=== PATIENT | male | born 1965 | race Two or more races ===

== ENCOUNTER 2016-07-15 04:34 | Inpatient (IN) | payer OTHER ==
[~2016-07-15] VITALS: Ht 170.2 cm; Wt 135.2 kg
[~2016-07-15 04:34] MED LIST: AMLO1CAP PO; METO100T7 PO
--- NOTE | 2016-07-15 04:46 | NUR ---
RECEIVED PT FOR SURGERY . PLZ SEE PRE OP ASSESSMENT . MRSA AND PRBC DRAWN PER ORDERED .
[2016-07-15] MEDS ORDERED: IV LR 1000 ML 1,000 ML ONE ×2 (05:03→08:56)
[2016-07-15] MEDS ORDERED: CEFAZOLIN SODIUM/DEXTROSE,ISO 50 ML IV ONE (05:03)
[2016-07-15] MEDS ORDERED: IV SET PRIMARY PUMP SET 1 EA INFUS.SET MC ONE ×2 (05:03→10:17)
[2016-07-15] MEDS ORDERED: SECONDARY IV SET 1 EA INFUS.SET MC ONE ×3 (05:03→14:42)
[2016-07-15] MEDS ORDERED: FENTANYL PF 100MCG/2ML AMPUL IV ONE (06:12)
--- NOTE | 2016-07-15 06:20 | NUR ---
BELONGING WITH FAMILY . UNABLE TO VERIFY MED LIST WITH PT . WILL FOLLOW UP .
[2016-07-15] MEDS ORDERED: KETOROLAC TROMETHAMINE INJ 30 MG/ML VIAL ONE (06:49)
[2016-07-15] MEDS ORDERED: BUPIVACAINE MPF 0.5% W/EPI INJ 30 ML VIAL ONE (06:50)
[2016-07-15] MEDS ORDERED: BACITRACIN 50000 UNITS/VIAL ONE (06:50)
[2016-07-15] MEDS ORDERED: TRANEXAMIC ACID 3,000 MG in SODIUM CHLORIDE IRRIG SOLUTION 70 ML IR ONE (07:30)
[2016-07-15] MEDS ORDERED: FENTANYL PF 100MCG/2ML AMPUL ONE (09:03)
--- NOTE | 2016-07-15 09:50 | NUR ---
ADMITTED FROM DAY SURGERY AFTER RT TKA. PT AWAKE, ALERT AND ORIENTED X4. O2@2L VIA NC. DRESSING DRY AND INTACT ON RT LEG. VS STABLE. WILL CHECK VS Q15MIN. SKIN INTACT. GIVEN UNIT ORIENTATION TO THE PT AND FAMILY. SIDE RAILS UP. CALL LIGHT WITHIN REACH. MONITOR CLOSELY.
[2016-07-15 10:00] VITALS: BP 119/70
[2016-07-15] MEDS ORDERED: ZOLPIDEM TARTRATE 5 MG TABLET PO PRN (10:00)
[2016-07-15] MEDS ORDERED: ONDANSETRON HCL/PF 4 MG/2 ML VIAL IVP PRN (10:00)
[2016-07-15] MEDS ORDERED: DOCUSATE SODIUM 250 MG CAPSULE PO PRN (10:00)
[2016-07-15] MEDS ORDERED: SENNOSIDES 8.6 MG TABLET PO PRN (10:00)
[2016-07-15] MEDS ORDERED: HYDROCODONE/APAP 5/325MG 1 EACH TABLET PO PRN (10:00)
[2016-07-15] MEDS ORDERED: ACETAMINOPHEN 325 MG TABLET PO PRN (10:00)
[2016-07-15] MEDS ORDERED: BISACODYL SUPP (10 MG) 10 MG/SUPP.RECT SUPP.RECT RC PRN (10:00)
[2016-07-15] MEDS: HYDROMORPHONE 1 MG/1 ML DISP.SYRIN SQ PRN (11:58)
[2016-07-15] MEDS ORDERED: HYDROCODONE/APAP 10/325MG 1 EA TABLET PO PRN (12:00)
[2016-07-15] MEDS: IV D5/0.45 NACL 1,000 ML IV PRN (12:13)
[2016-07-15] MEDS ORDERED: SET PCA INFUSE SET 1 EA INFUS.SET MC ONE (12:30)
[2016-07-15] MEDS: HYDROMORPHONE MDV 30 MG in IV NS 0.9% 15 ML, PCA TOTAL VOLUME 1 BAG IV PRN ×3 (12:50)
--- NOTE | 2016-07-15 13:00 | NUR ---
COMPLAINTS OF PAIN ON RT LEG. SPOKE WITH DR. OBRIEN. HE WILL ORDER PHYSICIST NUCLEAR.
[2016-07-15] MEDS ORDERED: ANESTHESIA TRAY IN PYXIS 1 EA TRAY MC ONE (13:55)
[2016-07-15] MEDS: ANCEF 1 GM/50 ML D5W IV SCH ×4 (14:46→23:37)
[2016-07-15] MEDS: BENAZEPRIL HCL 20 MG TABLET PO SCH (15:30)
[2016-07-15] MEDS: METOPROLOL SUCCINATE 50 MG TAB.SR.24H PO SCH (15:30)
[2016-07-15] MEDS ORDERED: Medication Not On Formulary EA (Amlodipine Besylate/Benazepril (Lotrel 10-20 Mg Capsule) PO SCH (15:30)
[2016-07-15] MEDS: AMLODIPINE BESYLATE 10 MG TABLET PO SCH (15:30)
[2016-07-15 16:00] VITALS: BP_SYST 121; BP_SYST 127; BP_DIAS 82
--- NOTE | 2016-07-15 18:31 | NUR ---
CLOSING SHIFT PT. AWAKE, ALERT AND ORIENTED X4. TOLERATED ON RT LEG PAIN. CASHIER PUMP ON. VS STABLE. NO BREATHING DEPRESSION. CONTINUE PULSE OX MONITOR. SELF VOIDED WELL. ORAL INTAKE GOOD. TKO IVF. ENCOURAGED AN INCENTIVE SPIROMETER. FAMILY AT THE BEDSIDE. SIDE RAILS UP. CALL LIGHT WITHIN REACH. MONITOR CLOSELY.
--- NOTE | 2016-07-15 19:53 | NUR ---
MS/RN NOTES PATIENT IN BED. AWAKE, ALERT AND ABLE TO VERBALIZE NEEDS AT ALL TIMED ON NUCLEAR CONTROL OPERATOR PUMP FOR PAIN. WILL CONTINUE TO PROVIDE CARE. FAMILY AT BEDSIDE AND REQUESTED FOR VISIT BY SON SANTOSH KHAN INFORM CHARGE NURSE.WILL CONTINUE MONITORING AND PROVIDE CARE.
[2016-07-15 20:00] VITALS: BP 108/70
[2016-07-15 20:28] VITALS: BP 108/70
[2016-07-15] MEDS: PANTOPRAZOLE 40 MG TABLET.DR PO SCH (22:30)
[2016-07-15] MEDS ORDERED: MAG HYDROX/AL HYDROX/SIMETH 30 ML UDC PO PRN (22:30)
[2016-07-15] MEDS ORDERED: CLONIDINE HCL 0.1 MG TABLET PO PRN (22:30)
[2016-07-15] MEDS ORDERED: MAGNESIUM HYDROXIDE 30 ML UDC PO PRN (22:30)
[2016-07-15] MEDS ORDERED: diphenhydrAMINE HCL 25 MG CAPSULE PO PRN (22:30)
[2016-07-15] MEDS ORDERED: oxyCODONE IR immediate release 5 MG CAPSULE PO PRN (23:00)
--- NOTE | 2016-07-16 00:05 | NUR ---
MS/RN NOTES MEDICATION PER CHARGE NURSE TO BE GIVEN IN AM
[2016-07-16] MEDS: IV D5/0.45 NACL 1,000 ML IV PRN ×2 (05:12→15:02)
--- NOTE | 2016-07-16 06:41 | NUR ---
MS/RN CLOSING NOTES PATIENT IN BED HOB ELEVATED ASLEEP W/ NO S/S OF SOB OR DISTRESS. ON OXYGEN 4 L VIA NC WITH 90% OXGYNATION. CALL LIGHTS WITHIN REACH.WILL ENDORSE TO AM RN KIMBERLEY
--- NOTE | 2016-07-16 07:40 | NUR ---
received pt. in am,alert and oriented x4.dvt to lt. leg.no complaints offered.hooked up to pox.level good o2 on.
[2016-07-16 08:00] VITALS: BP 111/66
[2016-07-16] MEDS: BENAZEPRIL HCL 20 MG TABLET PO SCH (09:00)
[2016-07-16] MEDS: AMLODIPINE BESYLATE 10 MG TABLET PO SCH (09:00)
[2016-07-16] MEDS: METOPROLOL SUCCINATE 50 MG TAB.SR.24H PO SCH (09:00)
[2016-07-16] MEDS: HYDROMORPHONE 1 MG/1 ML DISP.SYRIN SQ PRN ×3 (09:31→22:38)
[2016-07-16] MEDS: DOCUSATE SODIUM 100 MG CAPSULE PO SCH ×2 (09:49→17:26)
[2016-07-16] MEDS: RIVAROXABAN 10 MG TABLET PO SCH (09:50)
--- NOTE | 2016-07-16 10:30 | NUR ---
ptx in pt. walked short distance,meron well.
--- NOTE | 2016-07-16 11:00 | NUR ---
dilaudid inj. after activity.
--- NOTE | 2016-07-16 14:30 | NUR ---
phy. tx. in walked pt.some bleeding afterwards.on rt. knee area.nayeli mendez notified.additionally ok,indra cpm machine.drainage did leak through zackery.
[2016-07-16 16:00] VITALS: BP 109/66
[2016-07-16] MEDS ORDERED: SET PCA INFUSE SET 1 EA INFUS.SET MC ONE (16:58)
--- NOTE | 2016-07-16 17:00 | NUR ---
tolerated cpm for several hrs,and had another injection after 2nd walk with phy. kelly
[2016-07-16] MEDS: HYDROMORPHONE MDV 30 MG in IV NS 0.9% 15 ML, PCA TOTAL VOLUME 1 BAG IV PRN ×3 (17:02)
--- NOTE | 2016-07-16 19:15 | NUR ---
RN NOTE RECEIVED REPORT. PT AAOX4, S/P R KNEE REVISION SURGERY. NO C/O OF PAIN OR DISCOMFORT AT THIS TIME, BREATHING NON-LABORED AND EVEN, SATTING WELL. RIGHT LEG DRESSING INTACT, SMALL AMOUNT OF BLEEDING NOTED - MD AWARE PER AM RN. WILL MONITOR CLOSELY. ON ACADEMIC DEAN PUMP, SETTINGS ACCURATE. IV INTACT AND PATENT, WILL CONT TO MONITOR.
[2016-07-16 20:00] VITALS: BP 115/60
--- NOTE | 2016-07-16 20:51 | NUR ---
RN NOTE MD AT BEDSIDE. PER MD OBRIEN, "WE WILL MOST LIKELY STOP MEDIA REPORTER AT NOON TOMORROW'.
[2016-07-16] MEDS ORDERED: HYDROMORPHONE MDV 30 MG in IV NS 0.9% 15 ML, PCA TOTAL VOLUME 1 BAG IV PRN ×3 (21:00)
[2016-07-16] MEDS: PANTOPRAZOLE 40 MG TABLET.DR PO SCH (21:03)
--- NOTE | 2016-07-16 23:00 | NUR ---
RN NOTE PT TOLERATING PO VERY WELL, WILL PUT IV SALINE LOCK PER MD CECILIA VELASQUEZ
--- NOTE | 2016-07-17 05:35 | NUR ---
RN NOTE PT RESTING IN BED WITH EYES CLOSED. NO S/S OF ANY DISTRESS. WILL CONT TO MONITOR.
[2016-07-17] MEDS ORDERED: MIDAZOLAM HCL 2 MG/2ML VIAL IV ONE (06:12)
--- NOTE | 2016-07-17 06:44 | NUR ---
RN NOTE NO SIGNIFICANT CHANGES THIS SHIFT. PT RESTING WITH EYES CLOSED. NO S/S OF RESPIRATORY DISTRESS, BREATHING EVEN AND NON-LABORED ON 2L NC. NO S/S OF PAIN OR DISCOMFORT. PAIN MANAGED WITH ARRANGER ASSEMBLER PUMP. IV INTACT AND PATENT S/L. USED INCENTIVE SPIROMETER T/O SHIFT. R LEG DRESSING, SHOWED NO INCREASE IN BLEEDING. DRESSING TO BE CHANGED BY MD TODAY. ALL NEEDS ATTENDED TO, WILL F/U WITH DAY SHIFT FOR KIMBERLEY.
[2016-07-17 07:13] LABS: BASOPHILS % (AUTO) 0.2 % (0.0-2.0); EOSINOPHILS # (AUTO) 0.1 /CMM (0.0-0.7); HEMATOCRIT 38 % (39-51); HEMOGLOBIN 12.9 g/dL (13.5-17.5); LYMPHOCYTES # (AUTO) 2.4 /CMM (0.8-4.8); LYMPHOCYTES % (AUTO) 22.3 % (20.0-44.0); MEAN CORPUSCULAR HEMOGLOBIN 31 PG (26.0-33.0); MEAN CORPUSCULAR HGB CONC 34 g/dl (31.0-36.0); MEAN CORPUSCULAR VOLUME 90 fL (80-96); MONOCYTES # (AUTO) 1.1 /CMM (0.1-1.30); MONOCYTES % (AUTO) 10.1 % (2.0-12.0); NEUTROPHILS # (AUTO) 7.3 /CMM (1.8-8.9); NEUTROPHILS % (AUTO) 66.4 % (43.0-81.0); PLATELET COUNT (AUTO) 226 /CMM (150-450); RDW COEFFICIENT OF VARIATION 12.7 (11.5-15.0); RED BLOOD CELL COUNT(AUTO) 4.18 MIL/uL (4.5-6.0); WHITE BLOOD COUNT (AUTO) 10.9 K/uL (4.3-11.0)
--- NOTE | 2016-07-17 07:35 | NUR ---
RN AM NOTES RECEIVED PATIENT IN BED ASLEEP, BUT AROUSABLE, A/O X 4. TOLERATING, WALKER, NOVELTY TWISTER TENDER PUMP WELL. NEEDS ASSISTANCE TO GET OUT OF BED TO USE WALKER, BUT NO C/O PAIN. NOVELTY TWISTER TENDER PUMP TO BE DISCONTINUED AT 12 NOON. WILL CONTINUE TO MONITOR.
[2016-07-17 07:41] LABS: CALCIUM, SERUM 8.3 mg/dL (8.5-10.1); CREATININE 1.1 mg/dL (0.6-1.3); MAGNESIUM 2.2 mg/dL (1.8-2.4); PHOSPHORUS 2.5 mg/dL (2.5-4.9); POTASSIUM 3.7 mmol/L (3.5-5.1)
[2016-07-17 08:00] VITALS: BP 112/71
[2016-07-17] MEDS: AMLODIPINE BESYLATE 10 MG TABLET PO SCH (08:23)
[2016-07-17] MEDS: DOCUSATE SODIUM 100 MG CAPSULE PO SCH ×2 (08:23→16:13)
[2016-07-17] MEDS: BENAZEPRIL HCL 20 MG TABLET PO SCH (08:24)
[2016-07-17] MEDS: METOPROLOL SUCCINATE 50 MG TAB.SR.24H PO SCH (08:24)
[2016-07-17] MEDS: HYDROMORPHONE 1 MG/1 ML DISP.SYRIN SQ PRN ×2 (15:16→18:42)
[2016-07-17 16:00] VITALS: BP 104/62
[2016-07-17] MEDS: RIVAROXABAN 10 MG TABLET PO SCH (16:14)
--- NOTE | 2016-07-17 19:04 | NUR ---
RN PM NOTES PATIENT TO DISCHARGE THIS EVENING IN STABLE CONDITION. TRANSPORT NEEDED TO COME BACK BECAUSE NEED A BARIATRIC GURNEY. DICHARGE PAPERWORK GIVEN, PATIENT TO LEAVE IN AMBULANCE ON GURNEY ACCOMPANIED BY 2 FELT TIPPING MACHINE TENDER. WILL CONTINUE TO MONITOR.
--- NOTE | 2016-07-17 19:06 | NUR ---
WILL ENDORSE TO NEXT SHIFT
== END 2016-07-17 19:30 | DRG 470 ==
LOC: DS 04:34 → MED 08:57
PROVIDERS: ADMIT Specialist; ATTEND Internal Medicine
PROC: 0SRC0J9 Replacement of Right Knee Joint with Synthetic Substitute, Cemented, Open Approach (ICD-10-PCS; principal; 2016-07-15 06:30)
DX: M17.11 Unilateral primary osteoarthritis, right knee (principal); Z68.42 Body mass index [BMI] 45.0-49.9, adult; E66.01 Morbid (severe) obesity due to excess calories; E78.5 Hyperlipidemia, unspecified; I10 Essential (primary) hypertension; E78.00 Pure hypercholesterolemia, unspecified; Z79.01 Long term (current) use of anticoagulants; Z87.891 Personal history of nicotine dependence
CPT/HCPCS: 36415; 80048-TC; 83735-TC; 84100-TC; 85025-TC; 86850-TC; 86921-TC; 87081-TC; 88305-TC; 88311-TC; 93971-TC; 97001-TC; 97003-TC; 97110-TC; 97116-TC; 97530-TC; 97760-TC; A4216; A4217; A4606; A6402; C1713; J0690; J1100; J1170; J1885; J2250; J2370; J2704; J3010; J3490; J7060; J7120

== ENCOUNTER 2016-07-22 16:11 | Inpatient (IN) | payer OTHER ==
[~2016-07-22] VITALS: Ht 170.2 cm; Wt 131.5 kg
--- NOTE | 2016-07-22 23:10 | NUR ---
RN OPEN NOTES RECEIVED PATIENT [facility]. PATIENT ARRIVED ON UNIT VIA GURNEY WITH SISTER AT BEDSIDE. A/O X4. NO SIGNS OF DISTRESS OR DISCOMFORT. BREATHING EVEN AND UNLABORED. IV ACCESS IN LAC, PATENT AND INTACT. NO SIGNS OF REDNESS OR INFILTRATION. PATIENT STATES HE HAS PAIN 9/10 IN RIGHT LEG. WAS BEING GIVEN MORPHINE 4MG Q2H AT [facility], AND IT HELPED WITH PAIN MANAGEMENT. R KNEE IMMOBILIZER AND DRESSING C/D/I. ORIENTED PATIENT TO UNIT AND ROOM. BED IN LOW LOCKED POSITION WITH SIDE RAILS X2. CALL LIGHT WITHIN REACH. WILL CONTINUE TO MONITOR.
[2016-07-22 23:20] VITALS: BP 130/83
[2016-07-23] VITALS: BP 130/85
[2016-07-23] MEDS ORDERED: hydrALAZINE HCL 25 MG TABLET PO PRN
[2016-07-23] MEDS ORDERED: MAGNESIUM HYDROXIDE 30 ML UDC PO PRN
[2016-07-23] MEDS ORDERED: ACETAMINOPHEN 325 MG TABLET PO PRN
[2016-07-23] MEDS ORDERED: HYDROCODONE/APAP 5/325MG 1 EACH TABLET PO PRN
[2016-07-23] MEDS ORDERED: ONDANSETRON HCL/PF 4 MG/2 ML VIAL IVP PRN
[2016-07-23] MEDS ORDERED: MAG HYDROX/AL HYDROX/SIMETH 30 ML UDC PO PRN
[2016-07-23] MEDS ORDERED: ZOLPIDEM TARTRATE 5 MG TABLET PO PRN
[2016-07-23] MEDS ORDERED: Z GUARD REMEDY 2 OZ OINT TP PRN
[2016-07-23] MEDS ORDERED: MORPHINE SULFATE INJ 2 MG/ML DISP.SYRIN ONE ×3 (00:13→06:38)
[2016-07-23] MEDS: MORPHINE SULFATE INJ 2 MG/ML DISP.SYRIN IV PRN ×8 (00:28→21:43)
--- NOTE | 2016-07-23 00:30 | NUR ---
RN NOTES ADMINISTERED MORPHINE 4MG PRN FOR PAIN 9/10 IN RIGHT LEG. WILL CONTINUE TO MONITOR.
--- NOTE | 2016-07-23 04:18 | NUR ---
RN NOTES ADMINISTERED MORPHINE 4MG PRN FOR PAIN 9/10 IN RIGHT LEG. WILL CONTINUE TO MONITOR.
--- NOTE | 2016-07-23 06:45 | NUR ---
RN NOTES ADMINISTERED MORPHINE 4MG PRN FOR PAIN 9/10 IN RIGHT LEG. WILL CONTINUE TO MONITOR.
--- NOTE | 2016-07-23 07:20 | NUR ---
RN CLOSING NOTES PATIENT AWAKE IN BED WITH SISTER AT BEDSIDE. A/O X4. NO SIGNS OF DISTRESS OR DISCOMFORT. BREATHING EVEN AND UNLABORED. IV ACCESS IN LAC, PATENT AND INTACT. NO SIGNS OF REDNESS OR INFILTRATION. PAIN IS CURRENTLY AT A TOLERABLE LEVEL. R KNEE DRESSING C/D/I. ALL NEEDS MET. PATIENT KEPT CLEAN DRY AND COMFORTABLE. NO SIGNIFICANT CHANGES THROUGH THE NIGHT. BED IN LOW LOCKED POSITION WITH SIDE RAILS X2. CALL LIGHT WITHIN REACH. ENDORSED TO AM SHIFT TO [facility].
--- NOTE | 2016-07-23 07:25 | NUR ---
RN OPEN NOTES RECEIVED PATIENT AWAKE LYING IN BED. A/O X3. NO SIGNS OF DISTRESS OR DISCOMFORT. BREATHING EVEN AND UNLABORED. IV ACCESS PATENT AND INTACT. NO SIGNS OF REDNESS OR INFILTRATION. CONTINUED ON PAIN MANAGEMENT, IN NO APPARENT PAIN AT THIS TIME. BED IN LOW LOCKED POSITION WITH SIDE RAILS X2. CALL LIGHT WITHIN REACH. WILL CONTINUE TO MONITOR.
[2016-07-23 07:50] LABS: BASOPHILS % (AUTO) 0.3 % (0.0-2.0); EOSINOPHILS # (AUTO) 0.3 /CMM (0.0-0.7); EOSINOPHILS % (AUTO) 2.7 % (0.0-6.0); HEMATOCRIT 40 % (39-51); HEMOGLOBIN 13.7 g/dL (13.5-17.5); LYMPHOCYTES # (AUTO) 2.6 /CMM (0.8-4.8); MEAN CORPUSCULAR HEMOGLOBIN 31 PG (26.0-33.0); MEAN CORPUSCULAR HGB CONC 34 g/dl (31.0-36.0); MEAN CORPUSCULAR VOLUME 90 fL (80-96); MONOCYTES # (AUTO) 0.9 /CMM (0.1-1.30); MONOCYTES % (AUTO) 8.6 % (2.0-12.0); NEUTROPHILS # (AUTO) 6.3 /CMM (1.8-8.9); NEUTROPHILS % (AUTO) 62.4 % (43.0-81.0); PLATELET COUNT (AUTO) 333 /CMM (150-450); RDW COEFFICIENT OF VARIATION 12.6 (11.5-15.0); RED BLOOD CELL COUNT(AUTO) 4.49 MIL/uL (4.5-6.0); WHITE BLOOD COUNT (AUTO) 10.1 K/uL (4.3-11.0)
[2016-07-23 07:52] LABS: CALCIUM, SERUM 8.7 mg/dL (8.5-10.1); MAGNESIUM 2.4 mg/dL (1.8-2.4); PHOSPHORUS 3.5 mg/dL (2.5-4.9); POTASSIUM 4.3 mmol/L (3.5-5.1)
[2016-07-23 08:00] VITALS: BP 128/75
[2016-07-23] MEDS: PANTOPRAZOLE 40 MG TABLET.DR PO SCH (08:49)
[2016-07-23] MEDS ORDERED: AMLODIPINE BESYLATE 10 MG TABLET PO SCH (09:00)
--- NOTE | 2016-07-23 09:30 | NUR ---
RN NOTES PATIENT STATING DOES NOT WANT TO DO PHYSICAL THERAPY REVIEWED MD ORDERS WITH PT, REINFORCED NURSING EDUCATION PT WITH VERBAL UNDERSTANDING STATES "I WILL WALK BUT I WILL NOT BEND MY KNEE OR DO EXERCISES" PT REASSURED WILL CONTINUE PRN PAIN MEDICATION ORDERED AND CONTINUE TO MONITOR, PT ADVISED TO CALL FOR ASSISTANCE WHEN NEEDED
--- NOTE | 2016-07-23 10:00 | NUR ---
RN NOTES PT REFUSING DVT PUMPS AT THIS TIME MADE PSYCHOPAEDIC NURSE AWARE WILL CONTINUE TO MONITOR
[2016-07-23] MEDS: METOPROLOL SUCCINATE 50 MG TAB.SR.24H PO SCH (12:32)
[2016-07-23] MEDS: BENAZEPRIL HCL 20 MG TABLET PO SCH (12:32)
[2016-07-23 16:00] VITALS: BP 134/59
--- NOTE | 2016-07-23 19:31 | NUR ---
RN NOTES PATIENT AWAKE LYING IN BED. A/O X3. NO SIGNS OF DISTRESS OR DISCOMFORT. BREATHING EVEN AND UNLABORED. IV ACCESS PATENT AND INTACT. NO SIGNS OF REDNESS OR INFILTRATION. CONTINUED ON PAIN MANAGEMENT, IN NO APPARENT PAIN AT THIS TIME. BED IN LOW LOCKED POSITION WITH SIDE RAILS X2. CALL LIGHT WITHIN REACH. ENDORSED TO NEXT SHIFT FOR CONTINUITY OF CARE
--- NOTE | 2016-07-23 19:35 | NUR ---
RN NOTES RECEIVED PT AWAKE, APPEARS COMFORTABLE IN BED, NO SOB, NOT IN DISTRESS, TOLERATING ROOM AIR. PT ALERT AND ORIENTED X4, PAIN AT TOLERABLE LEVEL AT THIS TIME. DRESSING ON RIGHT KNEE DRY, CLEAN AND INTACT. KEPT COMFORTABLE AND ATTENDED. CALL LIGHT WITH IN REACH. WILL CONTINUE TO MONITOR PT.
--- NOTE | 2016-07-23 19:45 | NUR ---
RN NOTES PT WAS SEEN AND EXAMINED BY DR OBRIEN WITH ORDERS MADE, OXY IR 1 TAB FOR MODERATE PAIN AND 2 TABS FOR SEVERE PAIN . WITH RX LEFT AT THE CHART, PERCOCET 10/325MG TAB , 1 TAB PO QID FOR PAIN. PT AWARE.
[2016-07-23] MEDS ORDERED: oxyCODONE IR immediate release 5 MG CAPSULE PO PRN ×2 (20:30)
[2016-07-23 20:38] VITALS: BP 105/65
--- NOTE | 2016-07-23 21:43 | NUR ---
RN NOTES PT COMPLAINS OF 9/10 PAIN ON HIS RIGHT KNEE, MORPHINE 4 MG GIVEN IV. WILL CONTINUE TO MONITOR PT.
[2016-07-23 22:00] VITALS: BP 105/65
[2016-07-24] MEDS: MORPHINE SULFATE INJ 2 MG/ML DISP.SYRIN IV PRN ×5 (00:25→15:23)
--- NOTE | 2016-07-24 00:25 | NUR ---
RN NOTES PT COMPLAINS OF 10/10 PAIN ON HIS RIGHT KNEE, MORPHINE 4 MG GIVEN IV. WILL CONTINUE TO MONITOR THE PT.
--- NOTE | 2016-07-24 07:00 | NUR ---
RN NOTES PT ASLEEP, HOB ELEVATED, NO SOB, NO SIGNS OF DISTRESS AND DISCOMFORT NOTED. KEPT PAIN AT TOLERABLE LEVEL. VITAL SIGNS STABLE, AFEBRILE. NO EPISODE OF NAUSEA AND VOMITING. DRESSING ON RIGHT KNEE CLEAN, DRY AND INTACT, NO BLEEDING NOTED. PT ABLE TO AMBULATE TO THE BATHROOM WITH FWW. HAD 1 BM, LARGE. WILL ENDORSE TO MORNING RN FOR CONTINUITY OF CARE.
--- NOTE | 2016-07-24 07:30 | NUR ---
RN NOTES RECEIVED PT IN BED. AWAKE, ALERT, ORIENTED X 3. IN NO APPARENT DISTRESS. RESPIRATIONS EVEN AND UNLABORED. CLEAN AND DRY AT THIS TIME. VERBALIZED PAIN ON RIGHT KNEE @ 10/10- WILL ADMINISTER PRN MORPHINE. WILL CONTINUE TO MONITOR. CALL LIGHT WITHIN REACH
[2016-07-24 08:00] VITALS: BP 123/68
[2016-07-24] MEDS: BENAZEPRIL HCL 20 MG TABLET PO SCH (08:41)
[2016-07-24] MEDS: AMLODIPINE BESYLATE 10 MG TABLET PO SCH (08:41)
[2016-07-24] MEDS: METOPROLOL SUCCINATE 50 MG TAB.SR.24H PO SCH (08:41)
[2016-07-24] MEDS: PANTOPRAZOLE 40 MG TABLET.DR PO SCH (08:41)
--- NOTE | 2016-07-24 10:00 | NUR ---
RN NOTES PT ATE BREAKFAST WITH GOOD APPETITE- TOLERATED WELL. TOLERATED ALL DUE MEDS AND WOUND DRESSING CHANGE. PT SEEN BY PHYSICAL THERAPY; CPM APPLIED. PT REFUSED TO APPLY KNEE IMMOBILIZER WHEN AMBULATING- STATES DR BROOKS CAME THE NIGHT BEFORE AND SAID OK TO LEAVE IT OFF DURING AMBULATION. ANITA GREGORY WITH MELVI TAN. WILL CONTINUE TO MONITOR PT
--- NOTE | 2016-07-24 12:30 | NUR ---
RN NOTES MELVI TAN STATED THAT PT OK TO LEAVE CPM OFF DURING AMBULATION, AGREED UPON BY DR BROOKS. NOTED. PHYSICAL THERAPIST INFORMED. NOTIFIED PT. PT NOTED TO REMOVED RIGHT KNEE WOUND DRESSING. WILL RE-APPLY. WILL CONTINUE TO MONITOR
--- NOTE | 2016-07-24 14:30 | NUR ---
RN NOTES PT WALKER WITH PHYSICAL THERAPY. CLARIFIED WITH PT AND SISTER, THAT HE CAN KEEP FFUP APPT WITH DR BROOKS'S OFFICE FOR STAPLE REMOVAL. APPRECIATED INFORMATION. WILL CONTINUE TO MONITOR
[2016-07-24 16:00] VITALS: BP 123/68
--- NOTE | 2016-07-24 16:30 | NUR ---
RN NOTES PT'S CPM REMOVED. PT ABLE TO TOLERATE 40 MINUTES OF TX X 2 TODAY. WILL CONTINUE TO ENCOURAGE CPM USE.
[2016-07-24] MEDS: MORPHINE SULFATE INJ 4 MG/ML DISP.SYRIN IV PRN ×2 (18:17→21:26)
--- NOTE | 2016-07-24 18:30 | NUR ---
RN NOTES PT IN BED- WITH SISTER AT BEDSIDE. AWAKE, ALERT, ORIENTED X 3. STATES THAT PRN PAIN MEDS STARTING TO WORK. SEEN BY DR OBRIEN- UPDATED ABOUT PT PROGRESS. WILL ENDORSE TO ONCOMING SHIFT
[2016-07-24 19:00] VITALS: BP 119/78
--- NOTE | 2016-07-24 19:10 | NUR ---
RN NOTES RECEIVED PT AWAKE, APPEARS COMFORTABLE IN BED, NO SOB, NOT IN DISTRESS, TOLERATING ROOM AIR. PT ALERT AND ORIENTED X4, PAIN AT TOLERABLE LEVEL AT THIS TIME. RIGHT KNEE INCISION SITE WITH JACOBO INTACT, WOUND DRY AND CLEAN, NO BLEEDING NOTED, NO REDNESS AND DISCHARGE. NO DRESSING, OPEN TO AIR PER PT REQUEST PER AM RN REPORT. KEPT COMFORTABLE AND ATTENDED. KEPT BED IN THE LOWEST POSITION, LOCKED, SIDE RAILS X2 UP WITH CALL LIGHT WITH IN REACH. WILL CONTINUE TO MONITOR PT.
--- NOTE | 2016-07-24 21:26 | NUR ---
RN NOTES PT COMPLAINS OF 9/10 PAIN ON HIS RIGHT KNEE, MORPHINE 4 MG GIVEN IV. WILL CONTINUE TO MONITOR PT.
[2016-07-24 22:00] VITALS: BP 119/78
[2016-07-25] MEDS: MORPHINE SULFATE INJ 4 MG/ML DISP.SYRIN IV PRN ×5 (00:19→16:50)
--- NOTE | 2016-07-25 00:19 | NUR ---
RN NOTES PT COMPLAINS OF PAIN ON HIS RIGHT KNEE, 12/22. MORPHINE 2 MG GIVEN IV. WILL CONTINUE TO MONITOR PT.
--- NOTE | 2016-07-25 04:16 | NUR ---
RN NOTES PT COMPLAINS OF PAIN ON HIS RIGHT KNEE, 12/22. MORPHINE 2 MG GIVEN IV. WILL CONTINUE TO MONITOR PT.
--- NOTE | 2016-07-25 07:14 | NUR ---
RN NOTES PT ASLEEP, HOB ELEVATED, NO SOB, NO SIGNS OF DISTRESS AND DISCOMFORT NOTED. KEPT PAIN AT TOLERABLE LEVEL. VITAL SIGNS STABLE, AFEBRILE. NO EPISODE OF NAUSEA AND VOMITING. WOUND DRESSING ON RIGHT KNEE DONE, CLEAN, DRY AND INTACT, NO BLEEDING NOTED. PT ABLE TO AMBULATE TO THE BATHROOM WITH FWW. FOR POSSIBLE DISCHARGE TO SAME SNF TODAY, PT AWARE. WILL ENDORSE TO MORNING RN FOR CONTINUITY OF CARE.
--- NOTE | 2016-07-25 07:39 | NUR ---
MS RN OPENING NOTES RECEIVED PT. FROM NIGHTSHIFT NURSE IN STABLE CONDITION. A/O X4. NO SOB OR SIGNS OF DISTRESS AT THIS TIME. BREATHING IS EVEN AND UNLABORED. IV ON LEFT AC PATENT AND INTACT. NO REDNESS OR INFILTRATION NOTED. BED IN LOW LOCKED POSITION, SIDE RAILS UP X2, PT. CALL LIGHT WITHIN REACH. WILL CONTINUE TO MONITOR.
[2016-07-25 08:00] VITALS: BP 126/87
[2016-07-25 08:29] VITALS: BP 126/87
[2016-07-25] MEDS: AMLODIPINE BESYLATE 10 MG TABLET PO SCH (08:29)
[2016-07-25] MEDS: BENAZEPRIL HCL 20 MG TABLET PO SCH (08:29)
[2016-07-25] MEDS: METOPROLOL SUCCINATE 50 MG TAB.SR.24H PO SCH (08:29)
[2016-07-25] MEDS: PANTOPRAZOLE 40 MG TABLET.DR PO SCH (08:29)
[2016-07-25] MEDS ORDERED: MORPHINE SULFATE INJ 4 MG/ML DISP.SYRIN IV ONE (12:00)
== END 2016-07-25 17:05 | DRG 559 ==
LOC: MED 23:07
PROVIDERS: ADMIT Internal Medicine; ATTEND Nurse Practitioner Acute Care
DX: M96.661 Fracture of femur following insertion of orthopedic implant, joint prosthesis, or bone plate, right leg (principal); E43 Unspecified severe protein-calorie malnutrition; Z68.42 Body mass index [BMI] 45.0-49.9, adult; T84.83XA Hemorrhage due to internal orthopedic prosthetic devices, implants and grafts, initial encounter; Y83.8 Other surgical procedures as the cause of abnormal reaction of the patient, or of later complication, without mention of misadventure at the time of the procedure; Y79.2 Prosthetic and other implants, materials and accessory orthopedic devices associated with adverse incidents; Y92.199 Unspecified place in other specified residential institution as the place of occurrence of the external cause; Z96.651 Presence of right artificial knee joint; E66.01 Morbid (severe) obesity due to excess calories; E88.81 Metabolic syndrome and other insulin resistance; I10 Essential (primary) hypertension; Z87.891 Personal history of nicotine dependence; E78.00 Pure hypercholesterolemia, unspecified
CPT/HCPCS: 36415; 73550-TC; 73564-TC; 80048-TC; 80061-TC; 83735-TC; 84100-TC; 85025-TC; 87081-TC; 97001-TC; 97110-TC; 97116-TC; 97530-TC; A6253; A6402; J2270